=== PATIENT | male | born 1995 | race Caucasian/White ===

== ENCOUNTER 2016-07-11 18:07 | Emergency (ER) | payer OTHER ==
[~2016-07-11] VITALS: Wt 81.0 kg
[2016-07-11] MEDS ORDERED: DIPHTH/TET/ACEL PERTUSS (ADULT) 0.5 ML VIAL IM* ONE (19:00)
--- NOTE | 2016-07-16 13:25 | ERD ---
ER Documentation Chief Complaint Date/Time DATE: 07/16/16 TIME: 13:22 Chief Complaint STEPPED ON NAIL RT FOOT HPI This patient is a 20-year-old male with no significant medical history presenting to the emergency department after stepping on a nail with his right foot approximately just prior to arrival. The patient clean the area with peroxide. The patient states the nail went in about one quarter of an inch. The patient is taken no medications for relief of pain. The patient's tetanus is not up-to-date. The patient denies any foreign body sensation. The patient denies any fevers, chills, extreme pain, or other significant symptoms at this time. ROS All systems reviewed and are negative except as per history of present illness. Medications Home Meds Reported Medications [none] Unknown Strength No Conflict Check 10/30/15 Allergies Allergies: Coded Allergies: No Known Drug Allergies (Verified Allergy, Unknown, 10/30/15) PMhx/Soc Medical and Surgical Hx: pt denies Medical Hx, pt denies Surgical Hx Hx Alcohol Use: No Hx Substance Use: No Hx Tobacco Use: No Smoking Status: Never smoker FmHx Noncontributory for chief complaint Physical Exam Vitals Temperature: 98.0F Pulse: 89 Blood pressure: 144/84 Respirations: 18 O2 saturation 99% on room air. Physical Exam INITIAL VITAL SIGNS: Reviewed by me. GENERAL: Alert and interactive. No acute distress. HEAD: Head is normocephalic and atraumatic. EYES: EOMI. No scleral icterus. No conjunctival injection. ENT: Moist mucosa. NECK: Supple. Full range of motion. RESPIRATORY: Normal respiratory effort. Clear breath sounds bilaterally. No wheezing, rales, or rhonchi. CV: Regular rate and rhythm. Normal S1 S2. No S3 or S4. No murmurs. ABDOMEN: Soft, non-distended, non-tender. No guarding. No rebound. No masses. EXTREMITIES: There is some mild erythema with a small puncture cody on the plantar surface of the right heel. There is no tenderness to palpation, purulent discharge, active bleeding, or other abnormal signs. NEUROLOGIC: Alert and oriented x 4. Speech is normal. Moves all extremities equally. No motor or sensory deficits noted. Results 24 hrs Current Medications Medications (Trade) Dose Ordered Sig/Diana Route PRN Reason Start Time Stop Time Status Last Admin Dose Admin Diphtheria/ Tetanus/Acell Pertussis (Adacel) 0.5 ml ONCE ONCE IM* 07/11/16 19:00 07/11/16 19:01 DC 07/11/16 19:03 Procedures/MDM 20-year-old male presents to the department secondary to complaints of stepping on a nail with his right heel earlier today. On physical examination the patient's vitals are within normal limits. There is a small puncture wound to the right heel. I will update the patient's tetanus in the department. The patient declined needing any pain medication at this time. The patient is stable for outpatient management and discharge. The patient was advised to return to the emergency department immediately with any new or worsening symptoms. The patient understands discharge instructions and diagnosis. All questions and concerns were addressed and the patient was hemodynamically stable prior to discharge. Departure Diagnosis: Primary Impression: Puncture wound Condition: Fair Patient Instructions: Puncture Wound, Foot Referrals: COMMUNITY CLINICS YOU HAVE RECEIVED A MEDICAL SCREENING EXAM AND THE RESULTS INDICATE THAT YOU DO NOT HAVE A CONDITION THAT REQUIRES URGENT TREATMENT IN THE EMERGENCY DEPARTMENT. FURTHER EVALUATION AND TREATMENT OF YOUR CONDITION CAN WAIT UNTIL YOU ARE SEEN IN YOUR DOCTORS OFFICE WITHIN THE NEXT 1-2 DAYS. IT IS YOUR RESPONSIBILITY TO MAKE AN APPOINTMENT FOR FOLOW-UP CARE. IF YOU HAVE A PRIMARY DOCTOR --you should call your primary doctor and schedule an appointment IF YOU DO NOT HAVE A PRIMARY DOCTOR YOU CAN CALL OUR PHYSICIAN REFERRAL HOTLINE AT IF YOU CAN NOT AFFORD TO SEE A PHYSICIAN YOU CAN CHOSE FROM THE FOLLOWING [facility] [address] [facility] [facility] [address] [facility] [address] [facility] [address] [facility]. [facility] [address] [facility]. [facility] [address] Additional Instructions: Follow-up with your primary care physician within 1 week. Return to the emergency department immediately should you have any new or worsening symptoms, uncontrolled fevers, or other unexplained symptoms. Take all medications as directed. BERT HOFFMAN PA-C Jul 16, 2016 13:25
== END 2016-07-11 20:50 | disposition left against medical advice (07) ==
LOC: FTE 18:07
DX: S91.331A Puncture wound without foreign body, right foot, initial encounter (principal); W45.0XXA Nail entering through skin, initial encounter; Y92.9 Unspecified place or not applicable
CPT/HCPCS: 90471; 90715; Z7502